=== PATIENT | female | born 1980 | race African-American/Black ===

== ENCOUNTER 2016-08-04 12:43 | Outpatient (CLI) | payer BC ==
--- NOTE | 2016-08-04 15:22 | Cat Scan Report ---
CRANIAL CT SCAN: Dizziness. Serial contiguous axial images were obtained through the cranium. Intravenous contrast material was not administered. The ventricles are normal in size and appearance. There is no mass effect or midline shift. No areas of abnormally increased or decreased attenuation are seen. No mass lesion is seen. The mastoid air cells and visualized portions of the sinuses are normal. IMPRESSION: Cranial CT scan within normal limits.
--- NOTE | 2016-08-04 15:39 | Cat Scan Report ---
CT chest without contrast: Chest pain. Transverse images are obtained through the chest. Coronal and sagittal 2-D reformatted images include. No axillary, hilar, or mediastinal adenopathy appreciated. The lungs are clear of any nodule, infiltrate, or or pleural disease. The chest wall is unremarkable. Scattered mild lower thoracic spondylosis noted. Impression: No acute or significant pathology identified. Abdominal , pelvic CT without contrast: Abdominal pain. Transverse images are obtained through the abdomen and pelvis. Sagittal and coronal 2-D reformatted images included. The abdominal and retroperitoneal organs are unremarkable. The partially opacified bowel and mesentery appear normal. The appendix appears to be partially opacified with contrast and is no evidence of inflammatory process. The aorta is normal in size. No adenopathy appreciated. This evaluation is limited by lack of IV contrast. Sections through the pelvis demonstrate a small volume of cul-de-sac fluid. No pelvic mass appreciated. The bony structures are unremarkable. Impression: No pathology identified.
== END 2016-08-04 12:44 | disposition home or self-care (01) ==
LOC: CT 12:43
PROVIDERS: ATTEND Family Medicine Adult Medicine
DX: R07.9 Chest pain, unspecified (principal); R10.9 Unspecified abdominal pain; R42 Dizziness and giddiness; M47.894 Other spondylosis, thoracic region
CPT/HCPCS: 70450; 71250; 74176